=== PATIENT | female | born 1995 | race Caucasian/White ===

== ENCOUNTER 2018-09-04 12:33 | Day surgery (SDC) | payer BC ==
[2018-09-04 13:33] VITALS: BMI 37.8
[2018-09-04 13:46] VITALS: BP 125/77; TEMP 98.3
--- NOTE | 2018-09-04 14:27 | PDOC.LDHP ---
Labor and Delivery H&P Chief complaint: other (elevated BPs) HPI: 23 y/o G1 at 37w5d, patient of Dr. Simons, sent from clinic for elevated BPs. Denies VB, LOF, ctx, [place], vision changes, or decreased FM. Initial BP in clinic was elevated yesterday. Patient returned today and was elevated again, then was sent here for evaluation. ROS neg for HEENT, CV, pulm, GI, , neuro, psych, skin, musculoskeletal, or constitutional symptoms other than mentioned above. OB History Details: First Current complications: none Past Medical History: Hypothyroid Allergies Current medications: pre- vitamins, other ([place] Thyroid 90mcg) Previous surgical history: none Allergies/Adverse Reactions: Allergies Allergy/AdvReac Type Severity Reaction Status Date / Time banana Allergy Verified 09/04/18 13:26 horse dander Allergy Verified 09/04/18 13:25 insect venom Allergy Verified 09/04/18 13:25 Sulfa (Sulfonamide Allergy Verified 09/04/18 13:24 Antibiotics) Social history: none - Physical Exam Vital signs reviewed and normal: yes General: NAD, resting Lungs: nonlabored breathing Abdomen: NTTP Extremeties: no edema FHT: category 1 (130s, mod variability, + accels, no decels) [place] contractions every: none - Assessment 23 y/o G1 at 37w5d with no e/o preeclampsia. BPs wnl, labs wnl. status reassuring with reactive NST. - Plan -: D/c home with precautions. Advised to keep appointments.
[2018-09-04 14:28] LABS: #Eosinphils 0.2 thou/uL (0.0-0.7); #Lymphocytes 1.8 thou/uL (1.20-3.40); #Monocytes 0.5 thou/uL (0.11-0.59); #Neutrophils 5.9 thou/uL (1.40-6.50); %Basophils 0.5 % (0.0-1.0); %Eosinophils 1.8 % (0.0-10.0); %Lymphocytes 21.5 % (21.0-51.0); %Neutrophils 70.1 % (42.0-75.0); Hemoglobin 12.7 g/dL (12.0-16.0); Mean Corpuscular HGB CONC 33.2 g/dL (32.0-36.0); Mean Corpuscular Hemoglobin 29.4 pg (27.0-31.0); Mean Corpuscular Volume 88.6 fL (78.0-98.0); Mean Platelet Volume 7.7 fL (7.4-10.4); Platelet Count 239 thou/uL (130-400); Red Blood Cell (RBC) Count 4.32 mill/uL (4.20-5.40); White Blood Cell (WBC) Count 8.4 thou/uL (4.8-10.8)
[2018-09-04 14:50] LABS: ALT (SGPT) 14 U/L (8-55); AST (SGOT) 14 U/L (5-34); Albumin 3.1 g/dL (3.5-5.0); Alkaline Phosphatase 128 U/L (40-150); Anion Gap 11 mmol/L (10-20); BUN (Urea Nitrogen) 8 mg/dL (7.0-18.7); Bilirubin, Total 0.6 mg/dL (0.2-1.2); Calc. Creatinine Clearance 197 mL/min (70-130); Calcium 8.8 mg/dL (7.8-10.44); Carbon Dioxide 22 mmol/L (22-29); Chloride 108 mmol/L (98-107); Estimated GFR-MDRD Greater than 90; Globulin 3.1 g/dL (2.4-3.5); Glucose 105 mg/dL (70-105); Potassium 3.8 mmol/L (3.5-5.1); Protein, Total 6.2 g/dL (6.0-8.3); Sodium 137 mmol/L (136-145)
[2018-09-04 14:51] LABS: Creatinine, Urine 235.18 mg/dL (47-110)
== END 2018-09-04 15:30 | disposition home health service (06) ==
LOC: L&D/OP 12:33
PROVIDERS: ATTEND Obstetrics & Gynecology
DX: O16.3 Unspecified maternal hypertension, third trimester (principal); O99.283 Endocrine, nutritional and metabolic diseases complicating pregnancy, third trimester; E03.9 Hypothyroidism, unspecified; Z3A.37 37 weeks gestation of pregnancy; J30.81 Allergic rhinitis due to animal (cat) (dog) hair and dander; Z91.018 Allergy to other foods; Z88.2 Allergy status to sulfonamides; Z91.038 Other insect allergy status; Z79.899 Other long term (current) drug therapy
CPT/HCPCS: 36415; 80053; 82570; 84156; 85025; 87081; 99283

== ENCOUNTER 2018-09-07 15:54 | Day surgery (SDC) | payer BC ==
[2018-09-07 16:29] VITALS: BP 138/91; TEMP 97.6; BMI 37.5
--- NOTE | 2018-09-07 22:21 | PRG ---
DATE OF SERVICE: 09/07/2018 HISTORY OF PRESENT ILLNESS: The patient is a 23-year-old G1, P0 female with an intrauterine at 36 weeks and 5 days, who presented to Labor and Delivery with worries about elevated blood pressures at home. The patient reports that she has had some higher than normal pressures in the office and chose to get a blood pressure cuff. She has been checking them at home when they have been in the 130s to 150s systolic and came in for evaluation. The patient denies headache, chest pain, shortness of breath, nausea, vomiting, diarrhea, or constipation. The patient does report new rash that she has been diagnosed with PUPPPs and uses [id number] hydrocortisone to help with itching. She denies any palmar or plantar itching. The patient denies any vaginal bleeding, leakage of fluid, or urinary urgency. The patient did have lab work last Friday just three days prior to this visit for PIH workup, which came back all negative. PAST MEDICAL HISTORY: Thyroid disorder. PAST SURGICAL HISTORY: Colonoscopy. SOCIAL HISTORY: Denies drug, alcohol, or tobacco use. ALLERGIES: SULFA DRUGS. MEDICATIONS: 1. [place] Thyroid 90 mg tablet daily. 2. T3 25 mcg capsule daily. OB LABORATORY DATA: Blood type is A positive. Antibody screen is negative. VDRL in the first trimester is negative. Chlamydia is negative. She is rubella immune. Diabetic screen, her Glucola is 78. HIV in the third trimester is negative. REVIEW OF SYSTEMS: Per HPI. PHYSICAL EXAMINATION: VITAL SIGNS: The patient was here for 2 hours for blood pressure evaluation. She was noted to have pressures ranging from 124/76, most recent pressure upon discharge and 138/91 on her initial pressure. T-max is 141/81, heart rate low 100s, saturating 98% on room air, temperature 97.8. GENERAL: She appears to be in no acute distress. She is alert, oriented, cooperative, and pleasant to interact with. HEAD: Normocephalic and atraumatic. LUNGS: Clear to auscultation bilaterally. HEART: Regular rate and rhythm. ABDOMEN: Soft and gravid. EXTREMITIES: Nontender and nonedematous. The patient has 2+ DTRs, but is noted to have some beat of clonus. : Exam has been deferred. heart tracing performed. Fetus noted to have baseline in the 130s with moderate long-term variability, positive 15 x 15 accelerations, no decelerations. Tocometer does not show any regular contraction pattern. LABORATORY DATA: Lab work reviewed from last Friday shows white count of 8.4, hemoglobin 12.7, hematocrit is 38.3, platelets of 239,000. Creatinine of 0.63, BUN of 8, AST of 14, ALT of 14. Urine protein to creatinine ratio less than 0.1. ASSESSMENT AND PLAN: The patient is a 23-year-old G1, P0 female with an intrauterine at 36 weeks and 5 days, who came for blood pressure evaluation. Blood pressures here have been primarily normal with couple borderline pressures with 141 systolic and 93 diastolic. The patient is having no symptoms. The patient has an appointment in two days with Dr. Simons, which we have encouraged that she continue to keep. Fetus has reactive NST and category 1 tracing. Job ID: [id number]
== END 2018-09-07 20:00 | disposition home or self-care (01) ==
LOC: L&D/OP 15:54
PROVIDERS: ATTEND Obstetrics & Gynecology
DX: O16.3 Unspecified maternal hypertension, third trimester (principal); O99.283 Endocrine, nutritional and metabolic diseases complicating pregnancy, third trimester; Z79.899 Other long term (current) drug therapy; Z3A.36 36 weeks gestation of pregnancy; Z91.038 Other insect allergy status; Z88.2 Allergy status to sulfonamides; Z91.018 Allergy to other foods; Z91.048 Other nonmedicinal substance allergy status
CPT/HCPCS: 99282

== ENCOUNTER 2018-09-13 16:56 | Inpatient (IN) | payer BC ==
[~2018-09-13 16:56] MED LIST: Bupivacaine 0.25% 10 ML VIAL ONE
[2018-09-13] MEDS: Lactated Ringer's 1,000 ML IV SCH (17:41)
[2018-09-13] MEDS ORDERED: Misoprostol 100 MCG TAB VAG SCH (17:45)
[2018-09-13 17:47] VITALS: BMI 38.3
[2018-09-13 18:26] LABS: Mean Corpuscular HGB CONC 34.7 g/dL (32.0-36.0); Mean Corpuscular Hemoglobin 31.1 pg (27.0-31.0); Mean Corpuscular Volume 89.7 fL (78.0-98.0); Mean Platelet Volume 8.3 fL (7.4-10.4); Platelet Count 222 thou/uL (130-400); RBC Distribution Width 11.8 % (11.5-14.5); Red Blood Cell (RBC) Count 4.18 mill/uL (4.20-5.40)
[2018-09-13 19:03] LABS: Syphilis Antibody Nonreactive (Nonreactive); Syphilis Antibody Index 0.04 S/CO (<1.00 Non-Reactive)
[2018-09-13 19:04] LABS: HBSAg Index 0.21 S/CO (0-0.99); Hep B Surf Ag Non-Reactive S/CO (NonReactive)
--- NOTE | 2018-09-13 20:44 | PDOC.LDHP ---
Labor and Delivery H&P Chief complaint: scheduled induction HPI: gest htn to severe range with multiple observations in office and L&D. Current gestational age (weeks): 37 Due date: 08/30/18 Dating criteria: last menstrual period, first trimester ultrasound Grav: 1 Para: 0 Current complications: gestational hypertension Abnormal US findings: No Past Medical History: Hypothyroid tx by terence until his sudden correction. i have refilled her meds as rx by him during the Current medications: pre-raulito vitamins, other Previous surgical history: none Allergies/Adverse Reactions: Allergies Allergy/AdvReac Type Severity Reaction Status Date / Time banana Allergy Verified 09/07/18 16:30 horse dander Allergy Verified 09/07/18 16:30 insect venom Allergy Verified 09/07/18 16:30 Sulfa (Sulfonamide Allergy Verified 09/07/18 16:30 Antibiotics) Social history: none - Physical Exam Vital signs reviewed and normal: yes General: NAD, resting Heart: RRR Lungs: CTAB Abdomen: NTTP Extremeties: trace edema FHT: category 1 - Vaginal Exam cm dilated: 1 Effacement: 25% Station: -2 - OB Labs Blood type: A RH: positive Antibody Screen: negative HIV: negative RPR: negative HEPSAg: negative 1 hour GCT: negative GBS: negative Urine drug screen: not done Rubella: immune - Assessment L&D Assessment: medically indicated induction - Plan Plan: admit to L&D, cervical ripening, labor augmentation if indicated, informed consent obtained, anesthesia consult for pain management
[2018-09-14] MEDS: Lactated Ringer's 1,000 ML IV SCH ×5 (01:42→19:23)
[2018-09-14] MEDS: Misoprostol 100 MCG TAB VAG SCH ×3 (03:53→19:21)
[2018-09-14] MEDS ORDERED: Fentanyl 4 mcg/Bup 0.1% Cadd 100 ML ONE ×4 (07:11→19:41)
[2018-09-14] MEDS ORDERED: Ondansetron PF 4 MG/2 ML Vial ONE (07:12)
[2018-09-14] MEDS ORDERED: NS w/ Oxytocin 10 units 500 ML ONE (07:28)
[2018-09-14] MEDS ORDERED: Butorphanol Tartrate 1 MG/ML VIAL SLOW IVP PRN (09:54)
[2018-09-14] MEDS ORDERED: Ondansetron PF 4 MG/2 ML Vial IVP PRN (09:54)
[2018-09-14] MEDS ORDERED: Ibuprofen 800 MG TAB PO PRN (09:54)
[2018-09-14] MEDS ORDERED: NS / Oxytocin 40 units/1000ml 1,000 ML IV PRN (09:54)
[2018-09-14] MEDS ORDERED: Promethazine HCl 25 MG/ML VIAL IM PRN (09:54)
[2018-09-14] MEDS ORDERED: Lidocaine 1% (PF) 30 ML VIAL SC PRN (09:54)
[2018-09-14] MEDS ORDERED: HYDROcodone/Acetaminophen 5/325 mg Tablet PO PRN ×2 (09:54)
[2018-09-14] MEDS ORDERED: Lactated Ringer's 1,000 ML IV SCH (10:00)
[2018-09-14] MEDS: NS w/ Oxytocin 10 units 500 ML IV SCH (19:22)
[2018-09-15] MEDS ORDERED: Fentanyl 4 mcg/Bup 0.1% Cadd 100 ML ONE ×3 (00:54→12:02)
[2018-09-15] MEDS: Misoprostol 100 MCG TAB VAG SCH ×3 (00:59→06:45)
[2018-09-15] MEDS: Lactated Ringer's 1,000 ML IV SCH ×3 (01:26→07:31)
[2018-09-15] MEDS: NS w/ Oxytocin 10 units 500 ML IV SCH (02:51)
--- NOTE | 2018-09-15 04:36 | PDOC.LDPN ---
Labor & Delivery Progress Note - Subjective Subjective: comfortable - Objective Vital signs reviewed and normal: yes General: NAD, resting Uterine fundus: non tender Dilation: 8 Effacement: 100% Station: 1+ FHT: category 2, variable decelerations (strip reviewed since 2199, episodes of cat 2 and 1 noted. varible w fse placement, ow recent strip is cat 1 ) [place] contractions every: 5.5 FSE placed: yes Resuscitative measures: maternal position change - Assessment (1) Gestational [-induced] hypertension without significant proteinuria , unspecified trimester Code(s): O13.9 - GESTATIONAL HTN W/O SIGNIFICANT PROTEINURIA, UNSP TRIMESTER Current Visit: Yes Status: Acute Plan: continue plan of care, resuscitative measures, other (slow but steady progress. pit now at 2. continue iol. )
--- NOTE | 2018-09-15 07:33 | PDOC.LDPN ---
Labor & Delivery Progress Note - Subjective Subjective: comfortable, no concerns - Objective Vital signs reviewed and normal: yes General: NAD Uterine fundus: non tender Dilation: 9 Effacement: 100% Station: 1+ FHT: category 1 Other exam findings: pit at 8 - Assessment (1) Gestational [-induced] hypertension without significant proteinuria , unspecified trimester Code(s): O13.9 - GESTATIONAL HTN W/O SIGNIFICANT PROTEINURIA, UNSP TRIMESTER Current Visit: Yes Status: Acute Plan: continue plan of care (off shift at 0800. dr angeles will get checkout. will return to unit for delivery. )
[2018-09-15] MEDS ORDERED: Bupivacaine/Epinephrine 0.25% 30 ML VIAL ONE (11:11)
[2018-09-15] MEDS ORDERED: Adacel (T-DAP) 0.5 ML SYRINGE IM ONE (14:15)
[2018-09-15] MEDS ORDERED: Zolpidem Tartrate 5 MG TAB PO PRN (14:15)
[2018-09-15] MEDS ORDERED: Varicella virus, LIVE 0.5 ML VIAL SC ONE (14:15)
[2018-09-15] MEDS ORDERED: HYDROcodone/Acetaminophen 5/325 mg Tablet PO PRN ×2 (14:15)
[2018-09-15] MEDS ORDERED: Benzocaine/Menthol 20-0.5% 60 ML CAN TOP PRN (14:15)
[2018-09-15] MEDS ORDERED: Promethazine HCl 25 MG/ML VIAL IM PRN (14:15)
[2018-09-15] MEDS ORDERED: Lanolin Ointment 7 GM TUBE TOP PRN (14:15)
[2018-09-15] MEDS ORDERED: Ondansetron PF 4 MG/2 ML Vial IVP PRN (14:15)
[2018-09-15] MEDS ORDERED: Milk Of Magnesia 30 ML UDCUP PO PRN (14:15)
[2018-09-15] MEDS ORDERED: NS / Oxytocin 40 units/1000ml 1,000 ML IV SCH (14:15)
[2018-09-15] MEDS ORDERED: Bisacodyl 10 MG SUPP PR PRN (14:15)
[2018-09-15] MEDS ORDERED: Preparation H Ointment 28 GM TUBE PR PRN (14:15)
[2018-09-15] MEDS ORDERED: Ibuprofen 800 MG TAB PO SCH (15:30)
[2018-09-15] MEDS: Ferrous Sulfate 325 MG TAB PO SCH (17:22)
[2018-09-15] MEDS: Ibuprofen 800 MG TAB PO SCH (21:29)
[2018-09-15] MEDS: Docusate Calcium (SURFAK) 240 MG CAP PO SCH (21:29)
[2018-09-16] MEDS: Ibuprofen 800 MG TAB PO SCH ×3 (05:40→21:29)
[2018-09-16] MEDS: Ferrous Sulfate 325 MG TAB PO SCH ×2 (08:51→14:09)
[2018-09-16] MEDS: Misoprostol 100 MCG TAB VAG SCH ×2 (08:51→08:52)
[2018-09-16] MEDS: Lactated Ringer's 1,000 ML IV SCH (08:53)
[2018-09-16] MEDS: Prenatal Vitamin 1 TAB PO SCH (09:38)
[2018-09-16] MEDS: Docusate Calcium (SURFAK) 240 MG CAP PO SCH ×2 (09:38→21:30)
[2018-09-17] MEDS: Ibuprofen 800 MG TAB PO SCH (05:47)
[2018-09-17] MEDS: Ferrous Sulfate 325 MG TAB PO SCH (07:44)
[2018-09-17 08:15] VITALS: BP 131/72; TEMP 98.2
[2018-09-17] MEDS: Prenatal Vitamin 1 TAB PO SCH (08:39)
[2018-09-17] MEDS: Docusate Calcium (SURFAK) 240 MG CAP PO SCH (08:39)
== END 2018-09-17 12:30 | disposition home or self-care (01) | DRG 807 ==
LOC: L&D 16:56 → 3SW 09-15 16:35
PROVIDERS: ADMIT Obstetrics & Gynecology; ATTEND Obstetrics & Gynecology
PROC: 10907ZC Drainage of Amniotic Fluid, Therapeutic from Products of Conception, Via Natural or Artificial Opening (ICD-10-PCS; 2018-09-14)
PROC: 3E033VJ Introduction of Other Hormone into Peripheral Vein, Percutaneous Approach (ICD-10-PCS; 2018-09-14)
PROC: 10E0XZZ Delivery of Products of Conception, External Approach (ICD-10-PCS; principal; 2018-09-15)
PROC: 0KQM0ZZ Repair Perineum Muscle, Open Approach (ICD-10-PCS; 2018-09-15)
DX: O13.4 Gestational [pregnancy-induced] hypertension without significant proteinuria, complicating childbirth (principal); Z37.0 Single live birth; Z3A.37 37 weeks gestation of pregnancy; O70.1 Second degree perineal laceration during delivery
CPT/HCPCS: 51702; 76815; 85027; 86780; 86850; 86900; 86901; 87340; J2405; S0020